=== PATIENT | female | born 1935 | race African-American/Black ===

== ENCOUNTER 2019-08-16 13:55 | Emergency (ER) | payer OTHER ==
[~2019-08-16] VITALS: Ht 162.6 cm; Wt 82.0 kg
[2019-08-16] MEDS ORDERED: CLONIDINE 0.1MG TABLET PO ONE (14:30)
[2019-08-16 15:06] LABS: BASOPHILS % 0.7 % (0.0-2.0); EOSINOPHILS % 1.8 % (0.0-5.0); HEMATOCRIT. 38.2 % (36.0-48.0); LYMPHOCYTES % 34.4 % (20.0-50.0); MEAN CORPUSCULAR HEMOGLOBIN 21.3 pg (28.0-32.0); MEAN CORPUSCULAR VOLUME 67.9 fL (81.0-99.0); MEAN PLATELET VOLUME 9.1 fl (7.4-10.4); MONOCYTES % 9.1 % (2.0-8.0); PLATELET 168 x1000/uL (130-400); RED BLOOD CELL COUNT 5.63 mill/uL (4.2-5.4); RED CELL DISTRIBUTION WIDTH 16.4 % (11.6-14.6)
[2019-08-16 15:13] LABS: CHLORIDE 109 mEq/L (98-107)
[2019-08-16 15:34] LABS: PLATELET ESTIMATE NORMAL
[2019-08-16 16:23] LABS: CLARITY URINE CLEAR (CLEAR); COLOR URINE YELLOW (YELLOW); KETONES URINE NEGATIVE (NEGATIVE); LEUKOCYTE ESTERASE URINE NEGATIVE (NEGATIVE); NITRITE URINE NEGATIVE (NEGATIVE); OCCULT BLOOD URINE NEGATIVE (NEGATIVE); PROTEIN URINE NEGATIVE (NEGATIVE); SPECIFIC GRAVITY URINE 1.006 (1.005-1.030); UROBILINOGEN URINE 0.2 E.U./dL (0.2-1.0)
[2019-08-16 17:05] LABS: *AMPHETAMINES SCREEN URINE NEGATIVE (NEGATIVE); *BARBITURATES SCREEN URINE NEGATIVE (NEGATIVE); *BENZODIAZEPINES SCREEN URINE NEGATIVE (NEGATIVE); *COCAINE SCREEN URINE NEGATIVE (NEGATIVE)
[2019-08-16 17:06] LABS: CANNABINOID URINE SCREEN NEGATIVE (NEGATIVE); METHADONE URINE SCREEN NEGATIVE (NEGATIVE); OPIATES URINE SCREEN NEGATIVE (NEGATIVE); PHENCYCLIDINE URINE SCREEN NEGATIVE (NEGATIVE)
[2019-08-16] MEDS ORDERED: LOSARTAN POTASSIUM 50 MG TABLET PO ONE (18:30)
[2019-08-16 19:09] VITALS: BP 156/70
== END 2019-08-16 19:09 | disposition home or self-care (01) ==
LOC: ER 13:55
DX: I10 Essential (primary) hypertension (principal); E86.0 Dehydration; D72.821 Monocytosis (symptomatic); R00.1 Bradycardia, unspecified; F41.9 Anxiety disorder, unspecified; Z87.09 Personal history of other diseases of the respiratory system; Z87.440 Personal history of urinary (tract) infections; K59.00 Constipation, unspecified
CPT/HCPCS: 36415; 71045; 80305; 81003; 83880; 84484; 93005; 99284